=== PATIENT | female | born 1940 | race Caucasian/White ===

== ENCOUNTER 2017-06-23 18:58 | Emergency (ER) | payer OTHER ==
[~2017-06-23 18:58] MED LIST: ALPR0.5T3 PO; ASCO500C PO; ASPI81 CHEW; ATOR40TA PO; CRANCAP10 PO; FLUT50SP EACH NARE; GABA300C3 PO; LANTUS2P SC; LOSA100T3 PO; MELA3TAB14 PO; OMEP20TA PO; PRIM50TA PO; RANI150T PO; TAB-TAB PO; VERA120T3 PO; VITA100020 PO; VITA200017 PO
[2017-06-23 19:43] VITALS: BP 184/79; PULSE 77; RESP 20; TEMP 98.6; O2SAT 97
[2017-06-23] MEDS ORDERED: FOLI800T PO (20:26)
[2017-06-23] MEDS ORDERED: LOSA100T3 PO (20:26)
[2017-06-23] MEDS ORDERED: FENO54TA PO (20:26)
[2017-06-23] MEDS ORDERED: PRIM50TA5 PO (20:26)
[2017-06-23] MEDS ORDERED: GLUC100013 (20:26)
[2017-06-23] MEDS ORDERED: RANI150T PO (20:26)
[2017-06-23] MEDS ORDERED: EZET1TAB8 PO (20:26)
[2017-06-23] MEDS ORDERED: SERT-129 PO (20:26)
[2017-06-23] MEDS ORDERED: ATOR80TA45 PO (20:26)
[2017-06-23] MEDS ORDERED: LANTUS2P SQ (20:26)
[2017-06-23] MEDS ORDERED: ALPR0.25 PO (20:26)
[2017-06-23] MEDS ORDERED: GABA300C5 PO (20:26)
[2017-06-23] MEDS ORDERED: VERA120T3 PO (20:26)
[2017-06-23] MEDS ORDERED: OMEP20TA93 PO (20:26)
[2017-06-23 20:30] LABS: BILIRUBIN, URINE NEG (NEG); BLOOD, URINE NEG (NEG); GLUCOSE,URINE NEG (NEG); KETONE, URINE NEG (NEG); NITRITE,URINE NEG (NEG); PH, URINE 6.5 (5.0-8.5); URINE LEUKOCYTE ESTERASE SMALL (NEG)
[2017-06-23 20:38] LABS: URINE COLOR YELLOW (YELLW/STRAW)
[2017-06-23 20:39] LABS: BACTERIA, URINE OCC /hpf; RBC, URINE 0-3 /hpf (0-3); SQUAMOUS EPITHELIAL CELL URINE 0-5 /hpf (0-5); WHITE BLOOD CELL CLUMPS FEW
[2017-06-23] MEDS ORDERED: SODIUM CHLOR 0.9% 1000 ML INJ 1,000 ML IV SCH (20:44)
[2017-06-23] MEDS ORDERED: ONDANSETRON HCL 4 MG/2 ML VIAL IVP ONE (20:45)
[2017-06-23] MEDS ORDERED: SODIUM CHLORIDE 0.9% FLUSH 10 ML FLUSH IV FLUSH PRN (20:45)
--- NOTE | 2017-06-23 20:50 | PD ---
HPI Chief Complaint: Complaint Time Seen by Provider: 20:44 Travel History International Travel<30 days: No Contact w/Intl Traveler<30days: No Traveled to known affect area: No History of Present Illness HPI The patient is a 76-year-old female that complains of midline lower quadrant pain for 4 hours. She has had headache and sore throat for 2 weeks and developed diarrhea yesterday. She had multiple diarrhea stools. She states she vomited twice today. She has irritation of her eyes and a headache going on for today. She denies any dysuria, frequency or urgency. The abdominal pain is mild, a 4/10. She still has her appendix but has had a cholecystectomy and . PFSH Past Medical History Arthritis: Yes Depression: Yes Heart Rhythm Problems: No Cardiac Catheterization: No Cardiovascular Problems: Yes High Cholesterol: Yes Congestive Heart Failure: No Diabetes: Yes Patient Takes Glucophage: No Diminished Hearing: No Diverticulitis: Yes GERD: Yes Heparin Induced Thrombocytopen: No Hypertension: Yes Neurologic: Yes (TREMORS) Respiratory: No Immunizations Current: Yes Menopausal: Yes : 4 Para: 1 Miscarriage: 3 Past Surgical History Abdominal Surgery: Yes (ABBIE) Section: Yes Cholecystectomy: Yes Coronary Artery Bypass Graft: No Gynecologic Surgery: Yes (6 BREAST SURGERIES CALCIFICATIONS ) Tonsillectomy: Yes (& ADENOIDS) Other Surgery: Yes (BREAST SURGERIES FOR BENIGN TUNORS carpal diego) Family History Family Myocardial Infarction: No Social History Alcohol Use: No Tobacco Use: No Substance Use: No Allergies-Medications (Allergen,Severity, Reaction): Coded Allergies: meperidine (Verified Allergy, Severe, COMBATIVE, 06/23/17) penicillin G (Verified Allergy, Severe, RASH, 06/23/17) diatrizoate meglumine (Verified Allergy, Unknown, 06/23/17) KIDNEY FAILURE gadobenic acid (Verified Allergy, Unknown, 06/23/17) KIDNEY FAILURE gadodiamide (Verified Allergy, Unknown, 06/23/17) KIDNEY FAILURE gadoteridol (Verified Allergy, Unknown, 06/23/17) KIDNEY FAILURE iodixanol (Verified Allergy, Unknown, 06/23/17) KIDNEY FAILURE iohexol (Verified Allergy, Unknown, 06/23/17) KIDNEY FAILURE ciprofloxacin (Verified Adverse Reaction, Unknown, DIARRHEA, 06/23/17) doxycycline (Verified Adverse Reaction, Unknown, UPSET STOMACHE, 06/23/17) Uncoded Allergies: ANTIHISTAMINES (Adverse Reaction, Unknown, PALPITATIONS, 03/16/16) Reported Meds & Prescriptions Reported Meds & Active Scripts Active Reported Lantus Inj (Insulin Glargine) 1,000 Unit/10 Ml Vial 10 Units SQ HS Primidone 50 Mg Tab 50 Mg PO BID Ranitidine (Ranitidine HCl) 150 Mg Tab 150 Mg PO DAILY Alprazolam 0.25 Mg Tab 0.25 Mg PO Q6H PRN Verapamil (Verapamil HCl) 120 Mg Tab 120 Mg PO BID Omeprazole 20 Mg Tab 20 Mg PO DAILY Folic Acid 0.8 Mg Tab 800 Mcg PO DAILY Sertraline (Sertraline HCl) 100 Mg Tab 100 Mg PO DAILY Atorvastatin (Atorvastatin Calcium) 80 Mg Tab 80 Mg PO HS Glucosamine (Glucosamine Sulfate) 1,000 Mg Cap 1,000 Mg DAILY Gabapentin 300 Mg Cap 300 Mg PO TID Fenofibrate 54 Mg Tab 54 Mg PO DAILY Losartan-Hydrochlorothiazide 100-12.5 Mg Tab 1 Tab PO DAILY Ezetimibe 10 Mg Tab 10 Mg PO DAILY Review of Systems Except as stated in HPI: all other systems reviewed are Neg Physical Exam Narrative GENERAL: The patient is alert, oriented 3 in minimal apparent distress with her abdominal discomfort. SKIN: Focused skin assessment warm/dry. HEAD: Atraumatic. Normocephalic. EYES: Pupils equal and round. No scleral icterus. No injection or drainage. ENT: No nasal bleeding or discharge. Mucous membranes pink and moist. NECK: Trachea midline. No JVD. CARDIOVASCULAR: Regular rate and rhythm. No murmur appreciated. RESPIRATORY: No accessory muscle use. Clear to auscultation. Breath sounds equal bilaterally. GASTROINTESTINAL: Abdomen soft, with minimal tenderness to direct palpation directly over the surgical scar of the , nondistended. Hepatic and splenic margins not palpable. No guarding or rebound is present. MUSCULOSKELETAL: No obvious deformities. No clubbing. No cyanosis. No edema. NEUROLOGICAL: Awake and alert. No obvious cranial nerve deficits. Motor grossly within normal limits. Normal speech. PSYCHIATRIC: Appropriate mood and affect; insight and judgment normal. Data Data Last Documented VS Vital Signs Date Time Temp Pulse Resp B/P (MAP) Pulse Ox O2 Delivery O2 Flow Rate FiO2 06/23/17 19:43 98.6 77 20 184/79 (114) 97 Orders Orders Urinalysis - C+S If Indicated (06/23/17 19:48) Urine Culture (06/23/17 19:50) Complete Blood Count With Diff (06/23/17 20:44) Comprehensive Metabolic Panel (06/23/17 20:44) Lipase (06/23/17 20:44) Iv Access Insert/Monitor (06/23/17 20:44) Ecg Monitoring (06/23/17 20:44) Oximetry (06/23/17 20:44) Ondansetron Inj (Zofran Inj) (06/23/17 20:45) Sodium Chlor 0.9% 1000 Ml Inj (Ns 1000 M (06/23/17 20:44) Sodium Chloride 0.9% Flush (Ns Flush) (06/23/17 20:45) Labs Laboratory Tests Test 06/23/17 19:50 06/23/17 20:45 Urine Color YELLOW Urine Turbidity CLOUDY Urine pH 6.5 Urine Specific [place] 1.020 Urine Protein NEG mg/dL Urine Glucose (UA) NEG mg/dL Urine Ketones NEG mg/dL Urine Occult Blood NEG Urine Nitrite NEG Urine Bilirubin NEG Urine Leukocyte Esterase SMALL Urine RBC 0-3 /hpf Urine WBC 6-8 /hpf Urine WBC Clumps FEW Urine Squamous Epithelial Cells 0-5 /hpf Urine Bacteria OCC /hpf Microscopic Urinalysis Comment CULTURE INDICATED White Blood Count 6.9 TH/MM3 Red Blood Count 3.57 MIL/MM3 Hemoglobin 11.1 GM/DL Hematocrit 34.5 % Mean Corpuscular Volume 96.5 FL Mean Corpuscular Hemoglobin 31.1 PG Mean Corpuscular Hemoglobin Concent 32.2 % Red Cell Distribution Width 13.7 % Platelet Count 300 TH/MM3 Mean Platelet Volume 8.1 FL Neutrophils (%) (Auto) 62.8 % Lymphocytes (%) (Auto) 29.2 % Monocytes (%) (Auto) 5.8 % Eosinophils (%) (Auto) 1.6 % Basophils (%) (Auto) 0.6 % Neutrophils # (Auto) 4.4 TH/MM3 Lymphocytes # (Auto) 2.0 TH/MM3 Monocytes # (Auto) 0.4 TH/MM3 Eosinophils # (Auto) 0.1 TH/MM3 Basophils # (Auto) 0.0 TH/MM3 CBC Comment DIFF FINAL Differential Comment Blood Urea Nitrogen 23 MG/DL Creatinine 1.30 MG/DL Random Glucose 83 MG/DL Total Protein 7.4 GM/DL Albumin 3.6 GM/DL Calcium Level 9.7 MG/DL Alkaline Phosphatase 42 U/L Aspartate Amino Transf (AST/SGOT) 18 U/L Alanine Aminotransferase (ALT/SGPT) 18 U/L Total Bilirubin 0.3 MG/DL Sodium Level 139 MEQ/L Potassium Level 3.8 MEQ/L Chloride Level 106 MEQ/L Carbon Dioxide Level 26.2 MEQ/L Anion Gap 7 MEQ/L Estimat Glomerular Filtration Rate 40 ML/MIN Lipase 178 U/L MDM Medical Decision Making Medical Screen Exam Complete: Yes Emergency Medical Condition: Yes Medical Record Reviewed: Yes Interpretation(s) The CBC is normal except for a hemoglobin 11.1 and hematocrit of 34.5. The white cell count is only 6900. The complete metabolic profile shows a BUN of 23 , creatinine 1.3, GFR 40 but is otherwise unremarkable. The urinalysis shows cloudy turbidity, small leukocyte Estrace, 6-8 white cells with occasional bacteria and few white cell clumping's and culture is indicated. Differential Diagnosis Abdominal pain of undetermined etiology, acute appendicitis-extremely unlikely, incisional pain, urinary tract infection-cystitis versus pyelonephritis Narrative Course The patient appears to have a urinary tract infection. Her symptoms indicate a cystitis. She will be given Bactrim DS twice daily for 7 days. She needs to follow-up with her primary care physician next week. Diagnosis Primary Impression: Cystitis Additional Instructions: Increase your liquid intake. It is important to establish a good urine flow through your kidneys to fight off a urine infection. The Bactrim DS is one tablet twice daily for 7 days. Follow-up with your primary care physician next week. Med/Other Pt SpecificInfo: Prescription(s) given Scripts Sulfamethoxazole-Trimethoprim (Bactrim DS) 800-160 Mg Tab 1 TAB PO BID for Infection, #14 TAB 0 Refills Prov: Bryan Quintanilla MD 06/23/17 Disposition: 01 DISCHARGE HOME Condition: Stable Bryan Quintanilla MD Jun 23, 2017 20:50
[2017-06-23 20:57] LABS: AUTOMATED NEUTROPHIL # 4.4 TH/MM3 (1.8-7.7); BASOPHIL % 0.6 % (0.0-2.0); EOSINOPHIL # 0.1 TH/MM3 (0-0.4); EOSINOPHIL % 1.6 % (0.0-4.0); HEMATOCRIT 34.5 % (35.0-46.0); HEMOGLOBIN 11.1 GM/DL (11.6-15.3); LYMPH % 29.2 % (9.0-44.0); MEAN CELL VOLUME 96.5 FL (80.0-100.0); MEAN CORPUSCULAR HEMOGLOBIN 31.1 PG (27.0-34.0); MEAN CORPUSCULAR HGB CONC 32.2 % (32.0-36.0); MEAN PLATELET VOLUME 8.1 FL (7.0-11.0); MONO % 5.8 % (0.0-8.0); MONOCYTE # 0.4 TH/MM3 (0-0.9); NEUT % 62.8 % (16.0-70.0); PLATELET COUNT 300 TH/MM3 (150-450); RED BLOOD COUNT 3.57 MIL/MM3 (4.00-5.30); RED CELL DISTRIBUTION WIDTH 13.7 % (11.6-17.2); WHITE BLOOD COUNT 6.9 TH/MM3 (4.0-11.0)
[2017-06-23 21:04] LABS: CHLORIDE 106 MEQ/L (98-107); SODIUM (NA) 139 MEQ/L (136-145)
[2017-06-23 21:08] LABS: ALBUMIN 3.6 GM/DL (3.4-5.0); BICARBONATE 26.2 MEQ/L (21.0-32.0); BLOOD UREA NITROGEN 23 MG/DL (7-18); CALCIUM 9.7 MG/DL (8.5-10.1); GLUCOSE,RANDOM 83 MG/DL (74-106)
[2017-06-23 21:11] LABS: ALT (GPT) 18 U/L (10-53); AST (GOT) 18 U/L (15-37); GLOMERULAR FILTRATION RATE 40 ML/MIN (>89)
[2017-06-23 21:13] LABS: TOTAL BILIRUBIN ADULT 0.3 MG/DL (0.2-1.0); TOTAL PROTEIN 7.4 GM/DL (6.4-8.2)
[2017-06-23 21:14] LABS: ALKALINE PHOSPHATASE 42 U/L (45-117)
[2017-06-23] MEDS ORDERED: BACT800T5 PO (22:05)
[2017-06-23] MEDS ORDERED: SULFAMETHOXAZOLE-TRIMETHOPRIM DS 800-160 MG TAB PO ONE (22:15)
[2017-06-23 22:32] VITALS: BP 147/72
== END 2017-06-23 22:34 | disposition home or self-care (01) ==
LOC: PHED 18:58
DX: N30.90 Cystitis, unspecified without hematuria (principal); E11.9 Type 2 diabetes mellitus without complications; E78.00 Pure hypercholesterolemia, unspecified; I10 Essential (primary) hypertension; K21.9 Gastro-esophageal reflux disease without esophagitis; F32.9 Major depressive disorder, single episode, unspecified; Z79.4 Long term (current) use of insulin
CPT/HCPCS: 80053; 81001; 83690; 85025; 87086; 96361; 96374; 99283; J2405; J7030

== ENCOUNTER 2017-08-18 13:43 | Observation (INO) | payer OTHER ==
[~2017-08-18] VITALS: Ht 157.5 cm; Wt 89.8 kg
[~2017-08-18 13:43] MED LIST changes: +ALPR0.25 PO; -ALPR0.5T3 PO; -ASCO500C PO; -ASPI81 CHEW; -ATOR40TA PO; +ATOR80TA45 PO; +BACT800T5 PO; -CRANCAP10 PO; +EZET1TAB8 PO; +FENO54TA PO; -FLUT50SP EACH NARE; +FOLI800T PO; -GABA300C3 PO; +GABA300C5 PO; +GLUC100013; -LANTUS2P SC; +LANTUS2P SQ; -MELA3TAB14 PO; -OMEP20TA PO; +OMEP20TA93 PO; -PRIM50TA PO; +PRIM50TA5 PO; +SERT-129 PO; -TAB-TAB PO; -VITA100020 PO; -VITA200017 PO
[2017-08-18 13:52] VITALS: BP 196/87; PULSE 73; RESP 16; TEMP 98.6; O2SAT 97
--- NOTE | 2017-08-18 15:17 | PD ---
HPI Chief Complaint: Fall Time Seen by Provider: 15:01 Travel History International Travel<30 days: No Contact w/Intl Traveler<30days: No Traveled to known affect area: No History of Present Illness HPI 76-year-old female that presents to the ED for evaluation of fall. Per patient she had a fall on Wednesday. Per patient she was cleaning something her kitchen when some containers fell off and she went to pick him up and she started feeling dizzy. She try to hold onto the fridge but she fell and hit the back of her head and neck. She has been having pain ever since. She denies losing consciousness. Per patient she has been dizzy ever since. No history of this in the past. She does have a history of essential tremors as well as neck surgery in the past. She denies any chest pain or shortness of breath but she does state having some chest discomfort in the upper chest beer per patient has been ongoing since a fall. She denies any chest pain before the accident. No urinary or bowel movement issues. No fevers chills or sweats. Multiple allergies to different medications. Has not seen anybody for this. States the most of the pain is in the neck and the back of the head. No blurred vision or double vision. Takes no blood thinners. Able to ambulate. No leg or arm pain. She does have a history of bad right shoulder for which she knows she has to have surgery. She states that right now she does not want to have it. Pain per patient is 8 out of 10. Per patient with dizziness she feels she feels lightheaded. PFSH Past Medical History Arthritis: Yes Depression: Yes Heart Rhythm Problems: No Cardiac Catheterization: No Cardiovascular Problems: Yes High Cholesterol: Yes Congestive Heart Failure: No Diabetes: Yes Diminished Hearing: No Diverticulitis: Yes GERD: Yes Heparin Induced Thrombocytopen: No Hypertension: Yes Neurologic: Yes (TREMORS) Respiratory: No Immunizations Current: Yes Menopausal: Yes : 4 Para: 1 Miscarriage: 3 Past Surgical History Abdominal Surgery: Yes (ABBIE) Section: Yes Cholecystectomy: Yes Coronary Artery Bypass Graft: No Gynecologic Surgery: Yes (6 BREAST SURGERIES CALCIFICATIONS ) Tonsillectomy: Yes (& ADENOIDS) Other Surgery: Yes (BREAST SURGERIES FOR BENIGN TUNORS carpal diego) Social History Alcohol Use: No Tobacco Use: No Substance Use: No Allergies-Medications (Allergen,Severity, Reaction): Coded Allergies: meperidine (Verified Allergy, Severe, COMBATIVE, 08/18/17) penicillin G (Verified Allergy, Severe, RASH, 08/18/17) diatrizoate meglumine (Verified Allergy, Unknown, 08/18/17) KIDNEY FAILURE gadobenic acid (Verified Allergy, Unknown, 08/18/17) KIDNEY FAILURE gadodiamide (Verified Allergy, Unknown, 08/18/17) KIDNEY FAILURE gadoteridol (Verified Allergy, Unknown, 08/18/17) KIDNEY FAILURE iodixanol (Verified Allergy, Unknown, 08/18/17) KIDNEY FAILURE iohexol (Verified Allergy, Unknown, 08/18/17) KIDNEY FAILURE ciprofloxacin (Verified Adverse Reaction, Unknown, DIARRHEA, 08/18/17) doxycycline (Verified Adverse Reaction, Unknown, UPSET STOMACHE, 08/18/17) Uncoded Allergies: ANTIHISTAMINES (Adverse Reaction, Unknown, PALPITATIONS, 03/16/16) Reported Meds & Prescriptions Reported Meds & Active Scripts Active Bactrim DS (Sulfamethoxazole-Trimethoprim) 800-160 Mg Tab 1 Tab PO BID Reported Lantus Inj (Insulin Glargine) 1,000 Unit/10 Ml Vial 10 Units SQ HS Primidone 50 Mg Tab 50 Mg PO BID Ranitidine (Ranitidine HCl) 150 Mg Tab 150 Mg PO DAILY Alprazolam 0.25 Mg Tab 0.25 Mg PO Q6H PRN Verapamil (Verapamil HCl) 120 Mg Tab 120 Mg PO BID Omeprazole 20 Mg Tab 20 Mg PO DAILY Folic Acid 0.8 Mg Tab 800 Mcg PO DAILY Sertraline (Sertraline HCl) 100 Mg Tab 100 Mg PO DAILY Atorvastatin (Atorvastatin Calcium) 80 Mg Tab 80 Mg PO HS Glucosamine (Glucosamine Sulfate) 1,000 Mg Cap 1,000 Mg DAILY Gabapentin 300 Mg Cap 300 Mg PO TID Fenofibrate 54 Mg Tab 54 Mg PO DAILY Losartan-Hydrochlorothiazide 100-12.5 Mg Tab 1 Tab PO DAILY Ezetimibe 10 Mg Tab 10 Mg PO DAILY Review of Systems Except as stated in HPI: all other systems reviewed are Neg Physical Exam Narrative GENERAL: SKIN: Warm and dry. HEAD: Atraumatic. Normocephalic. EYES: Pupils equal and round. No scleral icterus. No injection or drainage. ENT: No nasal bleeding or discharge. Mucous membranes pink and moist. Tongue is midline. No uvula deviation. NECK: Trachea midline. No JVD. CARDIOVASCULAR: Regular rate and rhythm. No murmurs, S3, S4. RESPIRATORY: No accessory muscle use. Clear to auscultation. Breath sounds equal bilaterally. GASTROINTESTINAL: Abdomen soft, non-tender, nondistended. Hepatic and splenic margins not palpable. MUSCULOSKELETAL: Extremities without clubbing, cyanosis, or edema. No obvious deformities. Full range of motion of the upper and lower extremities bilaterally. 2+ pulses bilaterally. No lumbar, thoracic and cervical spine tenderness to palpation. She does have a surgical scar to the neck. Most of the pain is in the musculature of the cervical area. Also pain reproducible on the right shoulder blade. Sensation intact bilaterally. NEUROLOGICAL: Awake and alert. No obvious cranial nerve deficits. Motor grossly within normal limits. Five out of 5 muscle strength in the arms and legs. Normal speech. PSYCHIATRIC: Appropriate mood and affect; insight and judgment normal. Data Data Last Documented VS Vital Signs Date Time Temp Pulse Resp B/P (MAP) Pulse Ox O2 Delivery O2 Flow Rate FiO2 08/18/17 17:10 58 16 175/68 (103) 63 16 189/67 (107) 70 18 168/91 (116) 08/18/17 13:52 98.6 97 Orders Orders Electrocardiogram (08/18/17 15:08) Complete Blood Count With Diff (08/18/17 15:08) Comprehensive Metabolic Panel (08/18/17 15:08) Ckmb (Isoenzyme) Profile (08/18/17 15:08) Troponin I (08/18/17 15:08) Prothrombin Time / Inr (Pt) (08/18/17 15:08) Act Partial Throm Time (Ptt) (08/18/17 15:08) Lipase (08/18/17 15:08) Urinalysis - C+S If Indicated (08/18/17 15:08) Magnesium (Mg) (08/18/17 15:08) Thyroid Stimulating Hormone (08/18/17 15:08) Chest, Single Ap (08/18/17 15:08) Ct Brain W/O Iv Contrast(Rout) (08/18/17 15:08) Iv Access Insert/Monitor (08/18/17 15:08) Ecg Monitoring (08/18/17 15:08) Oximetry (08/18/17 15:08) Orthostatic Vital Signs (08/18/17 15:08) Ct Cerv Spine W/O Contrast (08/18/17 ) Acetamin-Hydrocod 325-5 Mg (Anabel 5-325 (08/18/17 17:00) Admit Order (Ed Use Only) (08/18/17 17:26) Labs Laboratory Tests Test 08/18/17 15:25 White Blood Count 8.5 TH/MM3 Red Blood Count 3.49 MIL/MM3 Hemoglobin 10.8 GM/DL Hematocrit 33.2 % Mean Corpuscular Volume 95.1 FL Mean Corpuscular Hemoglobin 31.0 PG Mean Corpuscular Hemoglobin Concent 32.5 % Red Cell Distribution Width 13.4 % Platelet Count 271 TH/MM3 Mean Platelet Volume 8.8 FL Neutrophils (%) (Auto) 65.4 % Lymphocytes (%) (Auto) 22.7 % Monocytes (%) (Auto) 5.7 % Eosinophils (%) (Auto) 1.7 % Basophils (%) (Auto) 4.5 % Neutrophils # (Auto) 5.6 TH/MM3 Lymphocytes # (Auto) 1.9 TH/MM3 Monocytes # (Auto) 0.5 TH/MM3 Eosinophils # (Auto) 0.1 TH/MM3 Basophils # (Auto) 0.4 TH/MM3 CBC Comment DIFF FINAL Differential Comment Prothrombin Time 10.5 SEC Prothromb Time International Ratio 1.0 RATIO Activated Partial Thromboplast Time 21.2 SEC Blood Urea Nitrogen 26 MG/DL Creatinine 1.30 MG/DL Random Glucose 84 MG/DL Total Protein 7.4 GM/DL Albumin 3.4 GM/DL Calcium Level 9.0 MG/DL Magnesium Level 1.5 MG/DL Alkaline Phosphatase 44 U/L Aspartate Amino Transf (AST/SGOT) 20 U/L Alanine Aminotransferase (ALT/SGPT) 16 U/L Total Bilirubin 0.3 MG/DL Sodium Level 140 MEQ/L Potassium Level 4.3 MEQ/L Chloride Level 107 MEQ/L Carbon Dioxide Level 25.7 MEQ/L Anion Gap 7 MEQ/L Estimat Glomerular Filtration Rate 40 ML/MIN Total Creatine Kinase 74 U/L Troponin I LESS THAN 0.02 NG/ML Lipase 185 U/L Thyroid Stimulating Hormone 3rd Gen 3.150 uIU/ML MDM Medical Decision Making Medical Screen Exam Complete: Yes Emergency Medical Condition: Yes Medical Record Reviewed: Yes Interpretation(s) Last Impressions Head CT 08/18/17 1508 Signed Impressions: Service Date/Time: Friday, August 18, 2017 15:39 - CONCLUSION: No acute disease. Anurag Yeager Jr., MD Chest X-Ray 08/18/17 1508 Signed Impressions: Service Date/Time: Friday, August 18, 2017 15:35 - CONCLUSION: No acute disease. Ever Petit MD Cervical Spine CT 08/18/17 0000 Signed Impressions: Service Date/Time: Friday, August 18, 2017 15:39 - CONCLUSION: 1. No evidence of acute bony or soft tissue trauma. 2. Degenerative disc disease and facet arthropathy as described. 3. Foraminal stenosis described above. Lacho Bergeron MD EKG shows sinus bradycardia with no sign of acute ischemia or arrythmia read by me and attending troponin and CKMB negative CBC & BMP Diagram 08/18/17 15:25 Total Protein 7.4, Albumin 3.4, Calcium Level 9.0, Magnesium Level 1.5, Alkaline Phosphatase 44 L, Aspartate Amino Transf (AST/SGOT) 20, Alanine Aminotransferase (ALT/SGPT) 16, Total Bilirubin 0.3 Differential Diagnosis Dizziness versus fracture versus syncope versus head injury versus fall versus head injury versus dehydration versus orthostatic hypotension versus hypertensive urgency Narrative Course 76-year-old female that presents to the ED for evaluation of fall. Patient was probably examined and was found to have signs and symptoms consistent appears to be dizziness and fall. Patient felt dizzy before she fell. Labs and imaging showed no sign of acute disease. Patient was reassured. Discussed the case with my attending Dr. Brito who recommends admission for further evaluation of the dizziness. Family and patient agreed. case discussed with Dr castillo who agrees with plan. . Diagnosis Primary Impression: Postural dizziness with near syncope Additional Impressions: Injury of head and neck Qualified Codes: S09.90XA - Unspecified injury of head, initial encounter; S19.9XXA - Unspecified injury of neck, initial encounter Fall Qualified Codes: W19.XXXA - Unspecified fall, initial encounter Admitting Information Admitting Physician Requests: Observation Alex Delarosa Aug 18, 2017 15:17
--- NOTE | 2017-08-18 15:44 | RADRPT ---
EXAM DATE/TIME: 08/18/2017 15:35 [facility] COMPARISON: No previous studies available for comparison. INDICATIONS : Dizziness, trauma to chest post fall 4 days ago MEDICAL HISTORY : None. SURGICAL HISTORY : Bilateral breast cyst removal ENCOUNTER: Initial ACUITY: 4 - 6 days PAIN SCORE: 0/10 LOCATION: Bilateral chest FINDINGS: A single view of the chest demonstrates the lungs to be symmetrically aerated without evidence of mas s, infiltrate or effusion. The cardiomediastinal contours are unremarkable. Osseous structures are intact. CONCLUSION: No acute disease. Ever Petit MD on August 18, 2017 at 15:42 Board Certified Radiologist. This report was verified electronically.
[2017-08-18 15:55] LABS: AUTOMATED NEUTROPHIL # 5.6 TH/MM3 (1.8-7.7); BASOPHIL # 0.4 TH/MM3 (0-0.2); BASOPHIL % 4.5 % (0.0-2.0); EOSINOPHIL # 0.1 TH/MM3 (0-0.4); EOSINOPHIL % 1.7 % (0.0-4.0); HEMATOCRIT 33.2 % (35.0-46.0); HEMOGLOBIN 10.8 GM/DL (11.6-15.3); LYMPH % 22.7 % (9.0-44.0); LYMPHOCYTE # 1.9 TH/MM3 (1.0-4.8); MEAN CELL VOLUME 95.1 FL (80.0-100.0); MEAN CORPUSCULAR HGB CONC 32.5 % (32.0-36.0); MEAN PLATELET VOLUME 8.8 FL (7.0-11.0); MONO % 5.7 % (0.0-8.0); MONOCYTE # 0.5 TH/MM3 (0-0.9); NEUT % 65.4 % (16.0-70.0); PLATELET COUNT 271 TH/MM3 (150-450); RED BLOOD COUNT 3.49 MIL/MM3 (4.00-5.30); RED CELL DISTRIBUTION WIDTH 13.4 % (11.6-17.2); WHITE BLOOD COUNT 8.5 TH/MM3 (4.0-11.0)
[2017-08-18 16:01] LABS: CHLORIDE 107 MEQ/L (98-107); SODIUM (NA) 140 MEQ/L (136-145)
--- NOTE | 2017-08-18 16:05 | RADRPT ---
EXAM DATE/TIME: 08/18/2017 15:39 [facility] COMPARISON: CT BRAIN W/O CONTRAST, September 17, 2014, 1:17. INDICATIONS : Trauma, fall. RADIATION DOSE: 67.56 CTDIvol (mGy) MEDICAL HISTORY : Hypertension. Diabetes mellitus type 2. Cardiovascular disease SURGICAL HISTORY : None. ENCOUNTER: Initial ACUITY: 1 day PAIN SCALE: 1/10 LOCATION: cranial TECHNIQUE: Multiple contiguous axial images were obtained of the head. Using automated exposure control and adj ustment of the mA and/or kV according to patient size, radiation dose was kept as low as reasonably a chievable to obtain optimal diagnostic quality images. DICOM format image data is available electro nically for review and comparison. FINDINGS: CEREBRUM: The ventricles are normal for age. No evidence of midline shift, mass lesion, hemorrhage or acute in farction. No extra-axial fluid collections are seen. POSTERIOR FOSSA: The cerebellum and brainstem are intact. The 4th ventricle is midline. The cerebellopontine angle i s unremarkable. EXTRACRANIAL: The visualized portion of the orbits is intact. SKULL: The calvaria is intact. No evidence of skull fracture. CONCLUSION: No acute disease. Anurag Yeager Jr., MD on August 18, 2017 at 15:59 Board Certified Radiologist. This report was verified electronically.
[2017-08-18 16:07] LABS: ALBUMIN 3.4 GM/DL (3.4-5.0); BICARBONATE 25.7 MEQ/L (21.0-32.0); BLOOD UREA NITROGEN 26 MG/DL (7-18); GLUCOSE,RANDOM 84 MG/DL (74-106); MAGNESIUM 1.5 MG/DL (1.5-2.5)
[2017-08-18 16:10] LABS: ALT (GPT) 16 U/L (10-53); AST (GOT) 20 U/L (15-37); GLOMERULAR FILTRATION RATE 40 ML/MIN (>89)
[2017-08-18 16:11] LABS: TOTAL BILIRUBIN ADULT 0.3 MG/DL (0.2-1.0); TOTAL PROTEIN 7.4 GM/DL (6.4-8.2)
[2017-08-18 16:12] LABS: ALKALINE PHOSPHATASE 44 U/L (45-117)
--- NOTE | 2017-08-18 16:13 | RADRPT ---
EXAM DATE/TIME: 08/18/2017 15:39 [facility] COMPARISON: No previous studies available for comparison. INDICATIONS : Trauma, fall. RADIATION DOSE: 26.31 CTDIvol (mGy) MEDICAL HISTORY : Cardiovascular disease. Hypertension. Diabetes mellitus type 2. SURGICAL HISTORY : None. ENCOUNTER: Initial ACUITY: 1 day PAIN SCALE: 2/10 LOCATION: neck TECHNIQUE: Volumetric scanning of the cervical spine was performed. Multiplanar reconstructions in the sagittal, coronal and oblique axial planes were performed. Using automated exposure control and adjustment o f the mA and/or kV according to patient size, radiation dose was kept as low as reasonably achievable to obtain optimal diagnostic quality images. DICOM format image data is available electronically f or review and comparison. FINDINGS: VERTEBRAE: Normal vertebral body height. There is no evidence of acute compression fracture. Posterior elements are intact. Advanced facet arthropathy is identified. There is significant joint space narrowing and marginal spurring especially along the right side at C3-4, C4-5 and C5-6. Posterior elements are othe rwise intact. There is no evidence of acute fracture or subluxation. ALIGNMENT: There is straightening of the normal cervical lordosis. There is no evidence of traumatic listhesis. C2-C3: The bony spinal canal is normal in size. No evidence of disc bulge or herniation. The neural forami na are bilaterally patent. C3-C4: The bony spinal canal is normal in size. No evidence of disc bulge or herniation. The neural forami na are bilaterally patent. C4-C5: Mild degenerative disc disease with marginal spondylosis. Bilateral foraminal narrowing is noted. Thi s is moderate on the right and [id number] on the left. C5-C6: Moderate degenerative disc disease with asymmetric disc space narrowing. There is marginal disc osteo phyte compresses special on the right lateral and posterolateral disc margin. Moderate foraminal encr oachment is noted. There is minimal epidural effacement. There is no evidence of spinal stenosis. C6-C7: Moderate degenerative disc disease with disc space narrowing and marginal spondylosis. There is broad -based disc osteophyte complex with mild anterior epidural effacement. There is no evidence of trauma tic disc herniation. There is no significant spinal stenosis. C7-T1: The bony spinal canal is normal in size. No evidence of disc bulge or herniation. The neural forami na are bilaterally patent. CONCLUSION: 1. No evidence of acute bony or soft tissue trauma. 2. Degenerative disc disease and facet arthropathy as described. 3. Foraminal stenosis described above. Lacho Bergeron MD on August 18, 2017 at 16:05 Board Certified Radiologist. This report was verified electronically.
[2017-08-18 16:15] LABS: TROPONIN I LESS THAN 0.02 NG/ML (0.02-0.05)
[2017-08-18 16:24] LABS: PROTHROMBIN TIME - PATIENT 10.5 SEC (9.8-11.6)
[2017-08-18] MEDS ORDERED: ACETAMINOPHEN/HYDROcodone 325 MG/5 MG TAB PO ONE (17:00)
[2017-08-18 17:10] VITALS: BP_SYST 168; BP_SYST 175; BP_SYST 189; BP_DIAS 67; BP_DIAS 68; BP_DIAS 91; RESP 16; RESP 18
[2017-08-18] MEDS ORDERED: ONDANSETRON HCL 4 MG/2 ML VIAL IVP PRN (17:45)
[2017-08-18] MEDS ORDERED: SODIUM CHLORIDE 0.9% FLUSH 10 ML FLUSH IV FLUSH PRN (17:45)
[2017-08-18] MEDS ORDERED: NALOXONE HCL 0.4 MG/ML AMP IV PUSH PRN (17:45)
[2017-08-18] MEDS ORDERED: ALPRAZolam 0.25 MG TAB PO PRN (17:45)
[2017-08-18] MEDS ORDERED: cloNIDine HCL 0.1 MG TAB PO PRN (17:45)
[2017-08-18] MEDS ORDERED: ENALAPRILAT 1.25 MG/ML VIAL IV PUSH PRN (17:45)
[2017-08-18] MEDS ORDERED: MAGNESIUM HYDROXIDE SUSP 30 ML CUP PO PRN (17:45)
[2017-08-18] MEDS: GABAPENTIN 300 MG CAP PO SCH (18:16)
[2017-08-18 19:18] LABS: BILIRUBIN, URINE NEG (NEG); BLOOD, URINE NEG (NEG); GLUCOSE,URINE NEG (NEG); KETONE, URINE NEG (NEG); NITRITE,URINE NEG (NEG); PH, URINE 5.5 (5.0-8.5); URINE COLOR YELLOW (YELLW/STRAW); URINE LEUKOCYTE ESTERASE SMALL (NEG)
[2017-08-18 19:23] LABS: BACTERIA, URINE OCC /hpf; RBC, URINE 0-3 /hpf (0-3)
[2017-08-18 20:00] VITALS: BP 141/64; PULSE 63; RESP 20; TEMP 98.8; O2SAT 99
[2017-08-18 20:08] VITALS: PULSE 59
[2017-08-18] MEDS ORDERED: VERAPAMIL HCL 120 MG TAB PO SCH (21:00)
[2017-08-18] MEDS ORDERED: INSULIN DETEMIR 100 UNITS/ML VIAL SQ SCH (21:00)
[2017-08-18] MEDS ORDERED: ATORVASTATIN 40 MG TAB PO SCH (21:00)
--- NOTE | 2017-08-18 21:03 | HHI.HP ---
[facility] Physician Jean Saldivar Do, MD Admission Diagnosis dizziness, pre syncope, fall Diagnoses: Travel History International Travel<30 Days: No Contact w/Intl Traveler <30 Da: No Traveled to Known Affected Are: No History of Present Illness Mrs. Gonzalez is a 76 year old female. She was brought to the hospital secondary to a dizzy spell at home. She had a presyncopal/syncopal episode while bending over to work on her refrigerator shelf. She had a fall at that time and was brought into the emergency department. In the past she has had these dizzy episodes before. She has had no formal workup of this. Testing in the ER shows she has orthostatic hypotension. This may be the primary cause but she has not had further evaluation. No complaints of chest pain. She says she did not lose consciousness completely. No trauma of the head and no joint or bone trauma during fall. No dehydration, nausea, vomiting, fever. Hypertensive urgency is present at the time of admission may be contributory to syncopal episode. Review of Systems Constitutional: DENIES: Fatigue, Fever, Chills Eyes: DENIES: Blurred vision, Diplopia, Eye inflammation, Eye pain, Vision loss Ears, nose, mouth, throat: DENIES: Hearing loss, Vertigo, Nasal discharge, Oral lesions Respiratory: DENIES: Cough, Wheezing, Shortness of breath Cardiovascular: COMPLAINS OF: Syncope, DENIES: Chest pain, Palpitations Gastrointestinal: DENIES: Abdominal pain, Black stools, Bloody stools Musculoskeletal: DENIES: Joint pain, Muscle aches, Stiffness Integumentary: DENIES: Abnormal pigmentation, Pruritus, Rash, Nail changes Hematologic/lymphatic: DENIES: Bruising, Lymphadenopathy Immunologic/allergic: DENIES: Eczema, Urticaria Neurologic: DENIES: Abnormal gait, Headache, Localized weakness, Paresthesias, Seizures, Speech Problems, Tremor, Poor Balance Psychiatric: DENIES: Anxiety, Confusion, Hallucinations Past Family Social History Past Medical History Osteoarthritis Depression Hyperlipidemia Cardiovascular disease Diabetes Diverticulitis Gastroesophageal reflux disease Hypertension Past Surgical History Cholecystectomy Breast resections Adenoidectomy Tonsillectomy Carpal tunnel surgery Reported Medications Reported Meds & Active Scripts Active Bactrim DS (Sulfamethoxazole-Trimethoprim) 800-160 Mg Tab 1 Tab PO BID Reported Lantus Inj (Insulin Glargine) 1,000 Unit/10 Ml Vial 10 Units SQ HS Primidone 50 Mg Tab 50 Mg PO BID Ranitidine (Ranitidine HCl) 150 Mg Tab 150 Mg PO DAILY Alprazolam 0.25 Mg Tab 0.25 Mg PO Q6H PRN Verapamil (Verapamil HCl) 120 Mg Tab 120 Mg PO BID Omeprazole 20 Mg Tab 20 Mg PO DAILY Folic Acid 0.8 Mg Tab 800 Mcg PO DAILY Sertraline (Sertraline HCl) 100 Mg Tab 100 Mg PO DAILY Atorvastatin (Atorvastatin Calcium) 80 Mg Tab 80 Mg PO HS Glucosamine (Glucosamine Sulfate) 1,000 Mg Cap 1,000 Mg DAILY Gabapentin 300 Mg Cap 300 Mg PO TID Fenofibrate 54 Mg Tab 54 Mg PO DAILY Losartan-Hydrochlorothiazide 100-12.5 Mg Tab 1 Tab PO DAILY Ezetimibe 10 Mg Tab 10 Mg PO DAILY Allergies: Coded Allergies: meperidine (Verified Allergy, Severe, COMBATIVE, 08/18/17) penicillin G (Verified Allergy, Severe, RASH, 08/18/17) diatrizoate meglumine (Verified Allergy, Unknown, 08/18/17) KIDNEY FAILURE gadobenic acid (Verified Allergy, Unknown, 08/18/17) KIDNEY FAILURE gadodiamide (Verified Allergy, Unknown, 08/18/17) KIDNEY FAILURE gadoteridol (Verified Allergy, Unknown, 08/18/17) KIDNEY FAILURE iodixanol (Verified Allergy, Unknown, 08/18/17) KIDNEY FAILURE iohexol (Verified Allergy, Unknown, 08/18/17) KIDNEY FAILURE ciprofloxacin (Verified Adverse Reaction, Unknown, DIARRHEA, 08/18/17) doxycycline (Verified Adverse Reaction, Unknown, UPSET STOMACHE, 08/18/17) Uncoded Allergies: ANTIHISTAMINES (Adverse Reaction, Unknown, PALPITATIONS, 03/16/16) Active Ordered Medications Administered Medications Medications (Trade) Dose Ordered Sig/Danae Route PRN Reason Start Time Stop Time Status Last Admin Dose Admin Gabapentin (Neurontin) 300 mg TID PO 08/18/17 18:00 08/18/17 18:16 Family History Miscarriages Social History Alcohol Use: No Tobacco Use: No Substance Use: No Physical Exam Vital Signs Vital Signs Date Time Temp Pulse Resp B/P (MAP) Pulse Ox O2 Delivery O2 Flow Rate FiO2 08/18/17 19:33 08/18/17 17:10 58 16 175/68 (103) 63 16 189/67 (107) 70 18 168/91 (116) 08/18/17 13:52 98.6 73 16 196/87 (123) 97 Physical Exam GENERAL: NAD, A&Ox3 HEAD: Normocephalic. NECK: Supple, trachea midline. No lymphadenopathy. EYES: No scleral icterus. No injection or drainage. CARDIOVASCULAR: Regular rate and rhythm without murmurs, gallops, or rubs. RESPIRATORY: Breath sounds equal bilaterally. No accessory muscle use. GASTROINTESTINAL: Abdomen soft, non-tender, nondistended. MUSCULOSKELETAL: No cyanosis, or edema. SKIN: Warm and dry. NEURO: No focal neurological deficitis. Laboratory Laboratory Tests Test 08/18/17 15:25 08/18/17 18:55 White Blood Count 8.5 Red Blood Count 3.49 Hemoglobin 10.8 Hematocrit 33.2 Mean Corpuscular Volume 95.1 Mean Corpuscular Hemoglobin 31.0 Mean Corpuscular Hemoglobin Concent 32.5 Red Cell Distribution Width 13.4 Platelet Count 271 Mean Platelet Volume 8.8 Neutrophils (%) (Auto) 65.4 Lymphocytes (%) (Auto) 22.7 Monocytes (%) (Auto) 5.7 Eosinophils (%) (Auto) 1.7 Basophils (%) (Auto) 4.5 Neutrophils # (Auto) 5.6 Lymphocytes # (Auto) 1.9 Monocytes # (Auto) 0.5 Eosinophils # (Auto) 0.1 Basophils # (Auto) 0.4 CBC Comment DIFF FINAL Differential Comment Prothrombin Time 10.5 Prothromb Time International Ratio 1.0 Activated Partial Thromboplast Time 21.2 Blood Urea Nitrogen 26 Creatinine 1.30 Random Glucose 84 Total Protein 7.4 Albumin 3.4 Calcium Level 9.0 Magnesium Level 1.5 Alkaline Phosphatase 44 Aspartate Amino Transf (AST/SGOT) 20 Alanine Aminotransferase (ALT/SGPT) 16 Total Bilirubin 0.3 Sodium Level 140 Potassium Level 4.3 Chloride Level 107 Carbon Dioxide Level 25.7 Anion Gap 7 Estimat Glomerular Filtration Rate 40 Total Creatine Kinase 74 Troponin I LESS THAN 0.02 Lipase 185 Thyroid Stimulating Hormone 3rd Gen 3.150 Urine Color YELLOW Urine Turbidity CLEAR Urine pH 5.5 Urine Specific [place] 1.015 Urine Protein NEG Urine Glucose (UA) NEG Urine Ketones NEG Urine Occult Blood NEG Urine Nitrite NEG Urine Bilirubin NEG Urine Urobilinogen 0.2 Urine Leukocyte Esterase SMALL Urine RBC 0-3 Urine WBC 6-8 Urine Squamous Epithelial Cells 6-8 Urine Bacteria OCC Microscopic Urinalysis Comment CULT NOT INDICATED Result Diagram: 08/18/17 1525 08/18/17 1525 Imaging Last Impressions Head CT 08/18/17 1508 Signed Impressions: Service Date/Time: Friday, August 18, 2017 15:39 - CONCLUSION: No acute disease. Anurag Yeager Jr., MD Chest X-Ray 08/18/17 1508 Signed Impressions: Service Date/Time: Friday, August 18, 2017 15:35 - CONCLUSION: No acute disease. Ever Petit MD Cervical Spine CT 08/18/17 0000 Signed Impressions: Service Date/Time: Friday, August 18, 2017 15:39 - CONCLUSION: 1. No evidence of acute bony or soft tissue trauma. 2. Degenerative disc disease and facet arthropathy as described. 3. Foraminal stenosis described above. Lacho Bergeron MD Caprini VTE Risk Assessment Caprini VTE Risk Assessment: No/Low Risk (score <= 1) Caprini Risk Assessment Model Point Value = 1 Point Value = 2 Point Value = 3 Point Value = 5 Age 41-60 Minor surgery BMI > 25 kg/m2 Swollen legs Varicose veins or History of unexplained or recurrent spontaneous Oral contraceptives or hormone replacement Sepsis (< 1 month) Serious lung disease, including pneumonia (< 1 month) Abnormal pulmonary function Acute myocardial infarction Congestive heart failure (< 1 month) History of inflammatory bowel disease Medical patient at bed rest Age 61-74 Arthroscopic surgery Major open surgery (> 45 min) Laparoscopic surgery (> 45 min) Malignancy Confined to bed (> 72 hours) Immobilizing plaster cast Central venous access Age >= 75 History of VTE Family history of VTE Factor V Leiden Prothrombin [id number] Lupus anticoagulant Anticardiolipin antibodies Elevated serum homocysteine Heparin-induced thrombocytopenia Other congenital or acquired thrombophilia Stroke (< 1 month) Elective arthroplasty Hip, pelvis, or leg fracture Acute spinal cord injury (< 1 month) Prophylaxis Regimen Total Risk Factor Score Risk Level Prophylaxis Regimen 0-1 Low Early ambulation 2 Moderate Order ONE of the following: *Sequential Compression Device (SCD) *Heparin 5000 units SQ BID 3-4 Higher Order ONE of the following medications: *Heparin 5000 units SQ TID *Enoxaparin/Lovenox 40 mg SQ daily (WT < 150 kg, CrCl > 30 mL/min) *Enoxaparin/Lovenox 30 mg SQ daily (WT < 150 kg, CrCl > 10-29 mL/min) *Enoxaparin/Lovenox 30 mg SQ BID (WT < 150 kg, CrCl > 30 mL/min) AND/OR *Sequential Compression Device (SCD) 5 or more Highest Order ONE of the following medications: *Heparin 5000 units SQ TID (Preferred with Epidurals) *Enoxaparin/Lovenox 40 mg SQ daily (WT < 150 kg, CrCl > 30 mL/min) *Enoxaparin/Lovenox 30 mg SQ daily (WT < 150 kg, CrCl > 10-29 mL/min) *Enoxaparin/Lovenox 30 mg SQ BID (WT < 150 kg, CrCl > 30 mL/min) AND *Sequential Compression Device (SCD) Assessment and Plan Problem List: (1) Postural dizziness with near syncope ICD Code: R42 - Dizziness and giddiness; R55 - Syncope and collapse Status: Acute (2) Fall ICD Code: W19.XXXA - Unspecified fall, initial encounter Status: Acute Assessment and Plan 76-year-old female admitted secondary to syncopal episode and hypertensive urgency. Syncope Positive orthostatic testing ER Monitor on telemetry overnight IV hydration Check carotid ultrasound Control blood pressures Hypertensive urgency Baseline hypertension Continue baseline treatment Begin as needed clonidine Begin as needed IV enalapril Adjust baseline treatment if needed, for control Hyperlipidemia Continue present treatment Follow as an outpatient Diabetes mellitus type 2 Follow blood sugars Insulin sliding scale Diabetic diet Osteoarthritis Depression Diverticulitis Gastroesophageal reflux disease No exacerbations of these conditions DVT Prophylaxis SCDs Problem Qualifiers (1) Fall: Qualified Codes: W19.XXXA - Unspecified fall, initial encounter Gustavo Olivas MD Aug 18, 2017 21:03
[2017-08-18] MEDS: SODIUM CHLOR 0.9% 1000 ML INJ 1,000 ML IV SCH (21:35)
[2017-08-18] MEDS: SODIUM CHLORIDE 0.9% FLUSH 10 ML FLUSH IV FLUSH SCH (21:35)
[2017-08-18] MEDS: FAMOTIDINE 20 MG TAB PO SCH (21:36)
[2017-08-18] MEDS: PRIMIDONE 50 MG TAB PO SCH (21:36)
[2017-08-19] VITALS: BP 139/64; PULSE 59; RESP 20; TEMP 97.4; O2SAT 97
[2017-08-19 04:00] VITALS: BP 131/59; PULSE 53; RESP 16; TEMP 97.1; O2SAT 96
[2017-08-19 08:00] VITALS: BP 157/65; PULSE 58; RESP 15; TEMP 97.3; O2SAT 98
[2017-08-19] MEDS: SODIUM CHLOR 0.9% 1000 ML INJ 1,000 ML IV SCH ×2 (08:10→13:33)
[2017-08-19] MEDS: FAMOTIDINE 20 MG TAB PO SCH (08:14)
[2017-08-19] MEDS: GABAPENTIN 300 MG CAP PO SCH ×2 (08:16→11:57)
[2017-08-19] MEDS: PRIMIDONE 50 MG TAB PO SCH (08:16)
[2017-08-19] MEDS: SODIUM CHLORIDE 0.9% FLUSH 10 ML FLUSH IV FLUSH SCH (08:17)
[2017-08-19] MEDS ORDERED: EZETIMIBE 10 MG TAB PO SCH (09:00)
[2017-08-19] MEDS ORDERED: NON-FORMULARY DRUG (Glucosamine 1,000 MG) SCH (09:00)
[2017-08-19] MEDS ORDERED: LISINOPRIL 20 MG TAB PO SCH (09:00)
[2017-08-19] MEDS ORDERED: NON-FORMULARY DRUG (Omeprazole 20 MG) PO SCH (09:00)
[2017-08-19] MEDS ORDERED: LOSARTAN 50 MG TAB PO SCH (09:00)
[2017-08-19] MEDS ORDERED: NON-FORMULARY DRUG (Losartan-Hydrochlorothiazide 1 TAB) PO SCH (09:00)
[2017-08-19] MEDS ORDERED: FOLIC ACID 1 MG TAB PO SCH (09:00)
[2017-08-19] MEDS ORDERED: SERTRALINE HCL 100 MG TAB PO SCH (09:00)
[2017-08-19] MEDS ORDERED: HYDROCHLOROTHIAZIDE 12.5 MG CAP PO SCH ×2 (09:00)
[2017-08-19] MEDS ORDERED: FENOFIBRATE 48 MG TAB PO SCH (09:00)
--- NOTE | 2017-08-19 10:57 | RADRPT ---
EXAM DATE/TIME: 08/19/2017 09:25 [place] COMPARISON: No previous studies available for comparison. INDICATIONS : Syncope. MEDICAL HISTORY : Hypercholesterolemia. Hypertension. Gastroesophageal reflux disease. Numbness. Arthritis. Diabetes. D epression. SURGICAL HISTORY : Tonsillectomy. Cholecystectomy. section. Adenoidectomy. Breast surgeries for benign tumors. Carpal tunnel. ENCOUNTER: Initial ACUITY: 1 day PAIN SCORE: 0/10 LOCATION: Bilateral neck PEAK SYSTOLIC VELOCITIES (cm/sec): ICA/CCA RATIO: Right: 1.9 Left: 1.4 ICA: Right: 166 Left: 104 CCA: Right: 86 Left: 73 ECA: Right: 91 Left: 90 VERTEBRAL: Right: 66 antegrade Left: 59 antegrade Elevated flow velocities and ICA/CCA ratios have been found to correlate with increased degrees of vessel stenosis, calculated as percentage of diameter relative to a normal segment of distal ICA/CCA FINDINGS: RIGHT CAROTID: Mild flow velocity acceleration within the right internal carotid artery several centimeters above th e carotid bifurcation in an area of tortuosity. Objective measures indicate potential for stenosis on the order of 50-69%. LEFT CAROTID: No significant stenosis is visualized. The waveforms are within normal limits. VERTEBRAL ARTERIES: Antegrade flow is seen in both vertebral arteries. MISCELLANEOUS: None. CONCLUSION: Abnormal study. Recommend CTA examination of the arch and carotids for definitive assessment Fadi Granados MD on August 19, 2017 at 10:49 Board Certified Radiologist. This report was verified electronically.
[2017-08-19 12:00] VITALS: BP 137/76; PULSE 62; RESP 15; TEMP 99.6; O2SAT 96
--- NOTE | 2017-08-19 12:28 | EKG ---
Date Performed: 08/18/2017 Time Performed: 15:25:59 PTAGE: 76 years EKG: SINUS BRADYCARDIA MINIMAL VOLTAGE CRITERIA FOR LVH, CONSIDER NORMAL VARIANT BORDERLINE ECG PREVIOUS TRACING : 09/20/2015 03.42 Since the previous tracing, no significant change noted DOCTOR: Ronaldo Durham Interpretating Date/Time 08/19/2017 12:28:27
[2017-08-19] MEDS ORDERED: ACETAMINOPHEN 500 MG CPLT PO PRN (12:45)
[2017-08-19] MEDS ORDERED: HYDR25TA5 PO (13:00)
[2017-08-19] MEDS ORDERED: LISI40TA PO (13:00)
--- NOTE | 2017-08-19 13:02 | HHI.DS ---
Discharge Summary Admission Date Aug 18, 2017 at 17:26 Discharge Date: Aug 19, 2017 Admitting Diagnosis dizziness, pre syncope, fall (1) Postural dizziness with near syncope ICD Code: R42 - Dizziness and giddiness; R55 - Syncope and collapse Diagnosis: Principal Status: Acute (2) Fall ICD Code: W19.XXXA - Unspecified fall, initial encounter Diagnosis: Principal Status: Acute Procedures None Brief History - From Admission Mrs. Gonzalez is a 76 year old female. She was brought to the hospital secondary to a dizzy spell at home. She had a presyncopal/syncopal episode while bending over to work on her refrigerator shelf. She had a fall at that time and was brought into the emergency department. In the past she has had these dizzy episodes before. She has had no formal workup of this. Testing in the ER shows she has orthostatic hypotension. This may be the primary cause but she has not had further evaluation. No complaints of chest pain. She says she did not lose consciousness completely. No trauma of the head and no joint or bone trauma during fall. No dehydration, nausea, vomiting, fever. Hypertensive urgency is present at the time of admission may be contributory to syncopal episode. CBC/BMP: 08/18/17 1525 08/18/17 1525 Significant Findings Laboratory Tests Test 08/18/17 15:25 08/18/17 18:55 Red Blood Count 3.49 MIL/MM3 (4.00-5.30) Hemoglobin 10.8 GM/DL (11.6-15.3) Hematocrit 33.2 % (35.0-46.0) Basophils (%) (Auto) 4.5 % (0.0-2.0) Basophils # (Auto) 0.4 TH/MM3 (0-0.2) Activated Partial Thromboplast Time 21.2 SEC (24.3-30.1) Blood Urea Nitrogen 26 MG/DL (7-18) Creatinine 1.30 MG/DL (0.50-1.00) Alkaline Phosphatase 44 U/L (45-117) Estimat Glomerular Filtration Rate 40 ML/MIN (>89) Troponin I LESS THAN 0.02 NG/ML Urine Leukocyte Esterase SMALL (NEG) Urine WBC 6-8 /hpf (0-5) Urine Squamous Epithelial Cells 6-8 /hpf (0-5) Urine Bacteria OCC /hpf (NONE) Hospital Course Mrs. Gonzlaez is a 76-year-old female. She was admitted secondary to a presyncopal episode. She also had hypertensive urgency which may have been contributory. She's been having recurrent dizzy spells when she bends over. No signs of abnormal rhythm overnight. Orthostatic hypotension was positive. Carotid ultrasound showed a possibility of stenosis in the range of 50-69%. Patient cannot obtain CTA or MRA secondary to severe allergy to contrast which put her in renal failure and acute pancreatitis last time she tried it. I've recommended a delayed image as an outpatient and continued monitoring and following of her carotid stenosis with outpatient primary care physician and cardiology. Blood pressures are improved on lisinopril and increased dose of hydrochlorothiazide. Her verapamil and losartan/hydrochlorothiazide have been discontinued. Patient is medically stable and cleared for discharge home today. Pt Condition on Discharge: Stable Discharge Disposition: Discharge Home Discharge Time: <= 30 minutes Discharge Instructions DIET: Follow Instructions for: As Tolerated, No Restrictions Activities you can perform: Regular-No Restrictions Follow up Referrals: Cardiology - 2 Weeks PCP Follow-up - 2 Weeks New Medications: Hydrochlorothiazide (Hydrochlorothiazide) 25 Mg Tab 25 MG PO DAILY for Blood Pressure Management, #30 TAB 0 Refills Lisinopril (Lisinopril) 40 Mg Tab 40 MG PO DAILY for Blood Pressure Management, #30 TAB 0 Refills Continued Medications: Alprazolam (Alprazolam) 0.25 Mg Tab 0.25 MG PO Q6H PRN for ANXIETY, TAB 0 Refills Atorvastatin (Atorvastatin) 80 Mg Tab 80 MG PO HS for Cholesterol Management, #30 TAB 0 Refills Ezetimibe (Ezetimibe) 10 Mg Tab 10 MG PO DAILY, #30 TAB 0 Refills Fenofibrate (Fenofibrate) 54 Mg Tab 54 MG PO DAILY, #30 TAB 0 Refills Folic Acid (Folic Acid) 0.8 Mg Tab 800 MCG PO DAILY for Nutritional Supplement, TAB 0 Refills Gabapentin (Gabapentin) 300 Mg Cap 300 MG PO TID, #90 CAP 0 Refills Glucosamine (Glucosamine) 1,000 Mg Cap 1000 MG DAILY for Herbal Supplements, CAP 0 Refills Insulin Glargine Inj (Lantus Inj) 1,000 Unit/10 Ml Vial 10 UNITS SQ HS for Blood Sugar Management, VIAL 0 Refills Omeprazole (Omeprazole) 20 Mg Tab 20 MG PO DAILY, #30 TAB 0 Refills Primidone (Primidone) 50 Mg Tab 50 MG PO BID for Control Seizures, #60 TAB 0 Refills Ranitidine (Ranitidine) 150 Mg Tab 150 MG PO DAILY for Heartburn Management, #30 TAB 0 Refills Sertraline (Sertraline) 100 Mg Tab 100 MG PO DAILY, #30 TAB 0 Refills Sulfamethoxazole-Trimethoprim (Bactrim DS) 800-160 Mg Tab 1 TAB PO BID for Infection, #14 TAB 0 Refills Discontinued Medications: Losartan-Hydrochlorothiazide (Losartan-Hydrochlorothiazide) 100-12.5 Mg Tab 1 TAB PO DAILY for Blood Pressure Management, #30 TAB 0 Refills Verapamil (Verapamil) 120 Mg Tab 120 MG PO BID, #60 TAB 0 Refills Gustavo Olivas MD Aug 19, 2017 13:02
== END 2017-08-19 15:19 | disposition home or self-care (01) ==
LOC: PHEFT 13:43 → PHEDA 17:26 → PH3A 19:08
PROVIDERS: ADMIT Hospitalist; ATTEND Hospitalist
DX: R55 Syncope and collapse (principal); I16.0 Hypertensive urgency; I95.1 Orthostatic hypotension; R00.1 Bradycardia, unspecified; R42 Dizziness and giddiness; S09.90XA Unspecified injury of head, initial encounter; S19.9XXA Unspecified injury of neck, initial encounter; I10 Essential (primary) hypertension; E78.00 Pure hypercholesterolemia, unspecified; E11.9 Type 2 diabetes mellitus without complications; K21.9 Gastro-esophageal reflux disease without esophagitis; G25.0 Essential tremor; M50.30 Other cervical disc degeneration, unspecified cervical region; F32.9 Major depressive disorder, single episode, unspecified; M19.90 Unspecified osteoarthritis, unspecified site; Z79.899 Other long term (current) drug therapy; W19.XXXA Unspecified fall, initial encounter
CPT/HCPCS: 70450; 71045; 72125; 80053; 81001; 82550; 82948; 83690; 83735; 84443; 84484; 85025; 85610; 85730; 93005; 93880; 96360; 97162; 99285; G0378; G8987; G8988; J7030